=== PATIENT | female | born 1970 | race American Indian/Alaskan Native ===

== ENCOUNTER 2016-07-11 14:43 | Emergency (ER) | payer SELFPAY ==
--- NOTE | 2016-07-11 15:48 | XRay Report ---
FINAL REPORT EXAM: XR ANKLE 3 RT HISTORY: right ankle injury TECHNIQUE: AP, lateral, and oblique views of the right ankle PRIORS: None. FINDINGS: There is no evidence for acute fracture or dislocation. No soft tissue swelling or radiopaque foreign bodies are seen. The ankle mortise is intact. Bony mineralization is normal and joint spaces are maintained. IMPRESSION: No acute soft tissue or bony abnormality noted.
[2016-07-11 17:46] VITALS: BP 158/90
[2016-07-11] MEDS ORDERED: MOTRIN PO ONE (17:55)
--- NOTE | 2016-07-11 18:04 | Emergency Department Report ---
HPI - General Chief Complaint: Extremity Injury, Lower Time Seen by Provider: 07/11/16 17:48 - HPI HPI: Room 7 The patient is a 45-year-old female presenting with a chief complaint right foot pain. The patient states that approximately noon while at a hotel she stepped into a hole around the swimming pool there was approximately 1 foot deep. The patient states she has had pain in the right ankle and foot since the incident. Patient currently gives her pain a score of 7-8/10. Patient states she does not want narcotic pain medication and requests ibuprofen Location: Right foot Duration: Constant since noon Quality: Pain Severity: 810 Modifying factors: [see above] Context: [see above] Mode of transportation: [not driving] ED Past Medical Hx - Past Medical History Previous Medical History?: No Hx Hypertension: Yes (no meds) - Surgical History Past Surgical History?: Yes Additional Surgical History: fallopian tube removed - Family History Family history: no significant - Social History Smoking Status: Current Every Day Smoker Substance Use Type: Alcohol - Medications Home Medications: Home Medications Medication Instructions Recorded Confirmed Last Taken Type Ibuprofen [Motrin 800 MG tab] 800 mg PO Q8HR PRN #20 tablet 07/11/16 Unknown Rx amLODIPine [Norvasc] 5 mg PO DAILY #90 tab 07/11/16 Unknown Rx ED Review of Systems ROS: Stated complaint: RT ANKLE INJURY Other details as noted in HPI Comment: All other systems reviewed and negative Constitutional: denies: chills, fever Eyes: denies: eye pain, eye discharge, vision change ENT: denies: ear pain, throat pain Respiratory: denies: cough, shortness of breath, wheezing Cardiovascular: denies: chest pain, palpitations Endocrine: no symptoms reported Gastrointestinal: denies: abdominal pain, nausea, diarrhea Genitourinary: denies: urgency, dysuria, discharge Musculoskeletal: arthralgia, myalgia Skin: denies: rash, lesions Neurological: denies: headache, weakness, paresthesias Psychiatric: denies: anxiety, depression Physical Exam - Physical Exam Vital Signs: Vital Signs 07/11/16 07/11/16 07/11/16 14:51 16:42 16:50 Temperature 98 F Pulse Rate 89 Respiratory 18 Rate Blood Pressure 156/101 176/120 Blood Pressure [Right] O2 Sat by Pulse 99 99 99 Oximetry 0507/11/16 07/11/16 16:53 16:56 17:00 Temperature Pulse Rate 73 Respiratory 18 18 Rate Blood Pressure 158/90 Blood Pressure 176/120 [Right] O2 Sat by Pulse 98 98 Oximetry 07/11/16 07/11/16 07/11/16 17:12 17:20 17:30 Temperature Pulse Rate Respiratory Rate Blood Pressure 158/90 158/90 158/90 Blood Pressure [Right] O2 Sat by Pulse 99 98 98 Oximetry Physical Exam: GENERAL: The patient is well-developed well-nourished female lying on stretcher not appearing to be in acute distress. [] HEENT: Normocephalic. Atraumatic. Extraocular motions are intact. Patient has moist mucous membranes. NECK: Supple. Trachea midline CHEST/LUNGS: Clear to auscultation. There is no respiratory distress noted. HEART/CARDIOVASCULAR: Regular. There is no tachycardia. There is no gallop rub or murmur. 2+ DP right foot ABDOMEN: Abdomen is soft, nontender. Patient has normal bowel sounds. There is no abdominal distention. SKIN: There is no rash. There is no edema. There is no diaphoresis. NEURO: The patient is awake, alert, and oriented. The patient is cooperative. The patient has normal speech MUSCULOSKELETAL: There is mild tenderness to palpation of bilateral malleoli the right ankle. There is tenderness to palpation of the dorsum of the right foot. There are no obvious deformities of the right foot or ankle. There is no evidence of acute injury. ED Course Vital Signs 07/11/16 07/11/16 07/11/16 14:51 16:42 16:50 Temperature 98 F Pulse Rate 89 Respiratory 18 Rate Blood Pressure 156/101 176/120 Blood Pressure [Right] O2 Sat by Pulse 99 99 99 Oximetry 07/11/16 07/11/16 07/11/16 16:53 16:56 17:00 Temperature Pulse Rate 73 Respiratory 18 18 Rate Blood Pressure 158/90 Blood Pressure 176/120 [Right] O2 Sat by Pulse 98 98 Oximetry 07/11/16 07/11/16 07/11/16 17:12 17:20 17:30 Temperature Pulse Rate Respiratory Rate Blood Pressure 158/90 158/90 158/90 Blood Pressure [Right] O2 Sat by Pulse 99 98 98 Oximetry ED Medical Decision Making - Radiology Data Radiology results: image reviewed (right ankle x-ray, right foot x-ray) interpreted by me: Right ankle x-ray-no acute fracture Right foot x-ray-no definite acute fractures. - Differential Diagnosis ankle fracture, ankle sprain, foot fracture foot contusion Critical care attestation.: If time is entered above; I have spent that time in minutes in the direct care of this critically ill patient, excluding procedure time. ED Disposition Clinical Impression: Contusion of right foot, Right foot pain, Hypertension Disposition: DISCHARGED TO HOME OR SELFCARE Is pt being admited?: No Does the pt Need Aspirin: No Condition: Stable Instructions: Hypertension (ED) Additional Instructions: Return to the emergency department immediately should you develop worsening symptoms, fever, inability to tolerate food or liquid or any other concerns. Prescriptions: amLODIPine [Norvasc] 5 mg PO DAILY #90 tab Ibuprofen [Motrin 800 MG tab] 800 mg PO Q8HR PRN #20 tablet PRN Reason: Pain Referrals: PRIMARY CAREMD [Primary Care Provider] - 3-5 Days NICOLE HILL JR, MD [Staff Physician] - 3-5 Days LANG VERGARA MD [Staff Physician] - 3-5 Days Time of Disposition: 18:24
--- NOTE | 2016-07-11 18:37 | XRay Report ---
FINAL REPORT EXAM: XR FOOT 2V RT HISTORY: pain after stepping into a hole COMPARISONS: Right ankle radiographs of the same date FINDINGS: Nonweightbearing AP and lateral views right foot Tarsometatarsal alignment is not well assessed on nonweightbearing view. No gross malalignment or deformity. No tibiotalar joint effusion, acute fracture, periosteal reaction or significant joint space abnormality. IMPRESSION: No displaced fracture or gross malalignment. Lisfranc injury is not well assessed on nonweightbearing view and if there is specific concern for a midfoot injury, CT is recommended.
== END 2016-07-11 18:38 | disposition home or self-care (01) ==
LOC: ED 14:43
DX: S90.31XA Contusion of right foot, initial encounter (principal); I10 Essential (primary) hypertension; F17.200 Nicotine dependence, unspecified, uncomplicated; W17.2XXA Fall into hole, initial encounter; Y93.89 Activity, other specified; Y92.59 Other trade areas as the place of occurrence of the external cause; Y99.8 Other external cause status